=== PATIENT | female | born 1980 | race Caucasian/White ===

== ENCOUNTER 2017-09-09 09:31 | Emergency (ER) | payer OTHER ==
[2017-09-09 10:21] VITALS: BP 132/91
--- NOTE | 2017-09-09 11:25 | UC ---
Complaint Female HPI - HPI Summary HPI Summary: Started feeling urinary frequency, urgency, pain, and pressure yesterday. Lots of trouble sleeping. Is at the end of her period, when she typically gets UTIs. This is similar to other UTIs she's had in the past. Denies vomiting, back pain , or fever. - History Of Current Complaint Chief Complaint: UCGU Stated Complaint: BURING,FREQUENT URINATION Time Seen by Provider: 09/09/17 11:07 Hx Obtained From: Patient Hx Last Menstrual Period: 09/05/17 ?: No Onset/Duration: Gradual Onset, Lasting Hours Timing: Constant Severity Initially: Moderate Severity Currently: None Pain Intensity: 0 Character: Dull, Burning, Cramping Aggravating Factor(s): Urination Associated Signs And Symptoms: Negative: Fever, Back Pain, Vaginal Bleeding/ Discharge, Vaginal Discharge, Nausea - Allergies/Home Medications Allergies/Adverse Reactions: Allergies Allergy/AdvReac Type Severity Reaction Status Date / Time latex Allergy Hives Verified 09/09/17 10:21 Home Medications: Home Medications Nuva Ring 1 applic VAGINAL MONTHLY 09/09/17 [History Confirmed 09/09/17] PMH/Surg Hx/FS Hx/Imm Hx Previously Healthy: Yes - Surgical History Surgical History: Yes Surgery Procedure, Year, and Place: T/A; [place] - Family History Known Family History: Positive: None - Social History Lives: With Family Alcohol Use: Rare Substance Use Type: None Smoking Status (MU): Never Smoked Tobacco Review of Systems Constitutional: Negative Skin: Negative Eyes: Negative ENT: Negative Respiratory: Negative Cardiovascular: Negative Gastrointestinal: Negative Genitourinary: Frequency, Urgency Motor: Negative Neurovascular: Negative Musculoskeletal: Negative Neurological: Negative Psychological: Negative Is Patient Immunocompromised?: No All Other Systems Reviewed And Are Negative: Yes Physical Exam Triage Information Reviewed: Yes Appearance: Well-Appearing, No Pain Distress, Well-Nourished Vital Signs: Initial Vital Signs Temp 98.2 F 09/09/17 09:54 Pulse 98 09/09/17 09:54 Resp 16 09/09/17 09:54 BP 132/91 09/09/17 09:54 Pulse Ox 100 09/09/17 09:54 Vital Signs Reviewed: Yes Eye Exam: Normal Eyes: Positive: Conjunctiva Clear. Negative: Conjunctiva Inflamed ENT Exam: Normal ENT: Positive: Normal ENT inspection, Hearing grossly normal, Pharynx normal, TMs normal Respiratory Exam: Normal Respiratory: Positive: Chest non-tender, Lungs clear, Normal breath sounds, No respiratory distress, No accessory muscle use Cardiovascular Exam: Normal Cardiovascular: Positive: RRR Abdomen Description: Negative: CVA Tenderness (R), CVA Tenderness (L) Musculoskeletal Exam: Normal Neurological Exam: Normal Neurological: Positive: Alert Psychological Exam: Normal Skin Exam: Normal Complaint Female Dx - Differential Dx/Diagnosis Provider Diagnoses: UTI. Elevated blood pressure due to discomfort Discharge - Discharge Plan Condition: Stable Disposition: HOME Prescriptions: Nitrofurantoin Macrocrystals* [Macrodantin*] 100 mg PO BID #10 cap Phenazopyridine 200 mg (NF) [Pyridium 200 MG tab *] 200 mg PO TID #6 tab Patient Education Materials: Urinary Tract Infection in Women (ED) Referrals: No Primary Care Phys,NOPCP [Primary Care Provider] - Additional Instructions: Please call or come back if you do not have marked improvement within 72 hours. Come back at any time if you have fever, back pain, or vomiting.
== END 2017-09-09 11:40 | disposition home or self-care (01) ==
LOC: UCEAST 09:31
DX: N39.0 Urinary tract infection, site not specified (principal); B96.20 Unspecified Escherichia coli [E. coli] as the cause of diseases classified elsewhere; R03.0 Elevated blood-pressure reading, without diagnosis of hypertension; Z32.02 Encounter for pregnancy test, result negative; Z87.440 Personal history of urinary (tract) infections; Z91.040 Latex allergy status
CPT/HCPCS: 81003; 84702; 87077; 87086; 87186; 99202; G0463

== ENCOUNTER 2024-05-19 18:46 | Inpatient (IN) ==
[2024-05-19 19:19] LABS: ABS Eosinophils 0.1 10^3/uL (0.0-0.5); ABS Lymphocytes 1.2 10^3/uL (1.0-4.8); ABS Monocytes 0.6 10^3/uL (0.0-0.9); ABS Neutrophils 5.9 10^3/uL (1.5-7.6); Eosinophil % 0.7 %; Hematocrit 43.7 % (35-45); Hemoglobin 14.6 g/dL (11.5-14.3); Mean Corpuscular Hemoglobin 30.4 pg (27-33); Mean Corpuscular Hgb Conc 33.3 g/dL (31-36); Mean Corpuscular Volume 91.3 fL (80-97); Mean Platelet Volume 8.5 fL (7.5-11.2); Platelet Count 200 10^3/uL (150-450); Red Blood Count 4.79 10^6/uL (3.63-4.92); Red Cell Distribution Width 13.8 % (12-17); White Blood Count 7.8 10^3/uL (3.8-11.8)
[2024-05-19 19:27] LABS: INR 1.06 (0.85-1.14)
[2024-05-19 19:48] LABS: High Sens Troponin Baseline 3 pg/mL (<15)
[2024-05-19 20:19] LABS: ALT 10 U/L (7-52); AST 12 U/L (13-39); Albumin/Globulin Ratio 1.3 (1-3); Alkaline Phosphatase 55 U/L (35-149); Anion Gap 9 mmol/L (2-16); Blood Urea Nitrogen 10 mg/dL (6-24); CO2 Carbon Dioxide 23 mmol/L (22-32); Calcium 9.1 mg/dL (8.6-10.3); Chloride 104 mmol/L (101-111); Creatinine, Serum 0.54 mg/dL (0.51-0.95); Glucose 110 mg/dL (70-100); Sodium 136 mmol/L (135-145); Total Bilirubin 0.7 mg/dL (0.2-1.0); eGFR CKD-EPI 117.8 (>60)
[2024-05-19] MEDS: Acetaminophen IV 1 GM/100ML 1,000 MG/100 ML BAG IV ONE (20:45)
[2024-05-19 20:58] LABS: High Sensitivity Troponin 1 Hr < 3 pg/mL (<15)
[2024-05-19 21:24] LABS: HCG Pregnancy < 0.60 mIU/mL
[2024-05-19] MEDS: Iohexol 350 (CONTRAST) 500 ML MDV IV ONE (21:33)
[2024-05-19] MEDS: Lactated Ringers 1000 ml BAG 1,000 ML IV ONE (21:43)
[2024-05-20] MEDS: Heparin DRIP 25,000 UNITS BAG 25,000 UNITS/250 ML BAG IV SCH (00:26)
[2024-05-20] MEDS: Heparin 5000 UNITS/ML 1 mL VIAL IV SCH (00:27)
[2024-05-20 00:58] LABS: Creatinine, Serum 0.49 mg/dL (0.51-0.95); eGFR CKD-EPI 120.6 (>60)
[2024-05-20 06:21] LABS: ABS Lymphocytes 0.9 10^3/uL (1.0-4.8); ABS Monocytes 0.7 10^3/uL (0.0-0.9); ABS Neutrophils 7.3 10^3/uL (1.5-7.6); Eosinophil % 0.4 %; Hemoglobin 13.4 g/dL (11.5-14.3); Lymphocyte % 10.5 %; Mean Corpuscular Hemoglobin 30.4 pg (27-33); Mean Corpuscular Hgb Conc 33.6 g/dL (31-36); Mean Corpuscular Volume 90.7 fL (80-97); Mean Platelet Volume 9.2 fL (7.5-11.2); Platelet Count 186 10^3/uL (150-450); Red Blood Count 4.41 10^6/uL (3.63-4.92); Red Cell Distribution Width 13.3 % (12-17)
[2024-05-20 06:39] LABS: Calcium 8.7 mg/dL (8.6-10.3); Creatinine, Serum 0.51 mg/dL (0.51-0.95); Potassium 3.6 mmol/L (3.5-5.0); eGFR CKD-EPI 119.4 (>60)
[2024-05-20] MEDS ORDERED: Magnesium Hydroxide LIQ 30 ML UDC PO PRN (09:07)
[2024-05-20] MEDS: Sulfur Hexaflouride MICROSPHR 25 MG VIAL IV PRN (09:15)
[2024-05-20] MEDS: Polyethylene Glycol 3350 17 GM PACKET PO SCH (09:48)
[2024-05-20 13:46] VITALS: BP 148/89
== END 2024-05-20 17:55 | disposition home or self-care (01) | DRG 176 ==
LOC: ED 18:46 → EDHOLD 23:03 → SUATTDRO 23:03 → MEDTELE 05-20 00:38
PROVIDERS: ADMIT Internal Medicine; ATTEND Student in an Organized Health Care Education/Training Program